=== PATIENT | female | born 1990 | race Two or more races ===

== ENCOUNTER 2021-08-08 13:35 | Emergency (ER) | payer OTHER ==
[~2021-08-08] VITALS: Ht 167.6 cm; Wt 59.0 kg
== END 2021-08-08 21:45 | disposition home or self-care (01) ==
LOC: ER 13:35
DX: K52.9 Noninfective gastroenteritis and colitis, unspecified (principal); T88.7XXA Unspecified adverse effect of drug or medicament, initial encounter; Z20.828 Contact with and (suspected) exposure to other viral communicable diseases